=== PATIENT | female | born 1960 ===

== ENCOUNTER 2021-03-23 19:28 | Emergency (ER) | payer SELFPAY ==
[2021-03-23] MEDS ORDERED: PROAIR HFA8.5 GM INH (22:07)
[2021-03-23] MEDS ORDERED: ONDANSETRON ODT4 MG SL (22:07)
[2021-03-23] MEDS ORDERED: BENZONATATE200 MG PO (22:07)
== END 2021-03-23 22:10 | disposition home or self-care (01) ==
LOC: ER1 19:28
DX: Z23 Encounter for immunization (principal); U07.1 COVID-19; E66.9 Obesity, unspecified; I10 Essential (primary) hypertension
CPT/HCPCS: 99283; M0243